=== PATIENT | male | born 1995 | race Caucasian/White ===

== ENCOUNTER 2017-09-08 05:25 | Emergency (ER) | payer SELFPAY ==
[~2017-09-08] VITALS: Ht 175.3 cm; Wt 73.9 kg
[~2017-09-08 05:25] MED LIST: CYCL-331 PO; HYDR-2163 PO; IBUP600T16 PO
--- NOTE | 2017-09-08 05:29 | ED.ADGEN ---
Past History Past Medical History: No Pertinent History, Asthma (FLORENCIA DALLAS MD) Past Surgical History: No Surgical History (FLORENCIA DALLAS MD) Smoking: Non-smoker Alcohol Use: None Drug Use: None (FLORENCIA DALLAS MD) Adult General Chief Complaint Chief Complaint chest pain (JAELYN WEIR DO) Chief Complaint " I woke up with this very bad chest pain on Lt..." (FLORENCIA DALLAS MD) HPI HPI Patient is a 21 year old male who presents with above hx and complaints of CP. Pt. is let pectoral area. No radiation, Some increase in pain with deep breaths and cough. No previous hx of cardia, DVT, trauma, fevers, chills or ill contacts. Pt. denies drug use. No travel. Pt. did get dehydrated today and was drinking "Monster" drinks. (FLORENCIA DALLAS MD) HPI I am taking over this patient from Dr. Dallas. Patient presents with left- sided chest wall pain. He states that it is a cramping pain that started last night. He was doing yard work all day yesterday working with a [employer]. He was drinking monster drinks all day no water or Gatorade in between. During my interview, the patient states pain is improved from when he arrived. His left pectoral muscle is tender with palpation. He denies shortness of breath or diaphoresis. (JAELYN WEIR DO) Review of Systems Review of Systems Constitutional: Denies fever or chills [] Eyes: Denies change in visual acuity, redness, or eye pain [] HENT: Denies nasal congestion or sore throat [] Respiratory: Denies cough or shortness of breath [] Cardiovascular: No additional information not addressed in HPI [] GI: Denies abdominal pain, nausea, vomiting, bloody stools or diarrhea [] : Denies dysuria or hematuria [] Musculoskeletal: Denies back pain or joint pain [] Integument: Denies rash or skin lesions [] Neurologic: Denies headache, focal weakness or sensory changes [] Endocrine: Denies polyuria or polydipsia [] All other systems were reviewed and found to be within normal limits, except as documented in this note. (FLORENCIA DALLAS MD) Family History Family History non-contributory (FLORENCIA DALLAS MD) Current Medications Current Medications Current Medications Medications (Trade) Dose Ordered Sig/Rowena Start Time Stop Time Status Last Admin Dose Admin Aspirin (Children'S Aspirin) 324 mg 1X ONCE 09/08/17 06:00 09/08/17 06:01 DC 09/08/17 06:00 324 MG Ketorolac Tromethamine (Toradol) 30 mg 1X ONCE 09/08/17 06:00 09/08/17 06:01 DC 09/08/17 06:00 30 MG Lactated Ringer's 1,000 ml @ 1,000 mls/hr Q1H 09/08/17 06:00 09/08/17 07:00 DC 09/08/17 06:00 1,000 MLS/HR (JAELYN WEIR DO) Current Medications See Nursing for home meds. (FLORENCIA DALLAS MD) Allergies Allergies Allergies Coded Allergies Type Severity Reaction Last Updated Verified Penicillins Allergy Intermediate 04/29/14 Yes (JAELYN WEIR DO) Physical Exam Physical Exam Constitutional: Well developed, well nourished, mild distress, non-toxic appearance. [] HENT: Normocephalic, atraumatic, bilateral external ears normal, oropharynx moist, no oral exudates, nose normal. [] Eyes: PERRLA, EOMI, conjunctiva normal, no discharge. [] Neck: Normal range of motion, no tenderness, supple, no stridor. [] Cardiovascular:Tachycardia Heart rate regular rhythm, no murmur [] Lungs & Thorax: Bilateral breath sounds equal with few scattered wheezes on auscultation [] Abdomen: Bowel sounds normal, soft, no tenderness, no masses, no pulsatile masses. [] Skin: Warm, dry, no erythema, no rash. [] Tattoos Back: No tenderness, no CVA tenderness. [] Extremities: No tenderness, no cyanosis, no clubbing, ROM intact, no edema. [] No cording appreciated. Neurologic: Alert and oriented X 3, normal motor function, normal sensory function, no focal deficits noted. [] Psychologic: Affect anxious judgement normal, mood normal. [] (FLORENCIA DALLAS MD) Current Patient Data Vital Signs Vital Signs Date Time Temp Pulse Resp B/P (MAP) Pulse Ox O2 Delivery O2 Flow Rate FiO2 09/08/17 05:51 98.4 110 17 98 Room Air ([facility]) Lab Results Laboratory Tests Test 09/08/17 06:13 White Blood Count 10.3 x10^3/uL (4.0-11.0) Red Blood Count 5.14 x10^6/uL (4.30-5.70) Hemoglobin 16.1 g/dL (13.0-17.5) Hematocrit 45.7 % (39.0-53.0) Mean Corpuscular Volume 89 fL (79-100) Mean Corpuscular Hemoglobin 31 pg (25-35) Mean Corpuscular Hemoglobin Concent 35 g/dL (31-37) Red Cell Distribution Width 13.1 % (11.5-14.5) Platelet Count 244 x10^3/uL (140-400) Neutrophils (%) (Auto) 69 % (31-73) Lymphocytes (%) (Auto) 20 % (24-48) L Monocytes (%) (Auto) 9 % (0-9) Eosinophils (%) (Auto) 0 % (0-3) Basophils (%) (Auto) 1 % (0-3) Neutrophils # (Auto) 7.2 x10^3uL (1.8-7.7) Lymphocytes # (Auto) 2.1 x10^3/uL (1.0-4.8) Monocytes # (Auto) 0.9 x10^3/uL (0.0-1.1) Eosinophils # (Auto) 0.0 x10^3/uL (0.0-0.7) Basophils # (Auto) 0.1 x10^3/uL (0.0-0.2) Prothrombin Time 11.7 SEC (9.4-11.4) H Prothrombin Time INR 1.1 (0.9-1.1) PTT 26 SEC (23-33) D-Dimer (Yuko) < 0.19 mg/L (0.00-0.50) Urine Collection Type Unknown Urine Color Straw Urine Clarity Clear Urine pH 6.0 Urine Specific [place] <=1.005 Urine Protein Neg (NEG-TRACE) Urine Glucose (UA) Neg mg/dL (NEG) Urine Ketones (Stick) 40 mg/dL (NEG) Urine Blood Neg (NEG) Urine Nitrite Neg (NEG) Urine Bilirubin Neg (NEG) Urine Urobilinogen Dipstick 0.2 mg/dL (0.2 mg/dL) Urine Leukocyte Esterase Neg (NEG) Urine RBC 0 /HPF (0-2) Urine WBC 0 /HPF (0-4) Urine Squamous Epithelial Cells Occ /LPF Urine Bacteria 0 /HPF (0-FEW) Sodium Level 141 mmol/L (136-145) Potassium Level 3.4 mmol/L (3.5-5.1) L Chloride Level 104 mmol/L (98-107) Carbon Dioxide Level 26 mmol/L (21-32) Anion Gap 11 (6-14) Blood Urea Nitrogen 15 mg/dL (8-26) Creatinine 1.4 mg/dL (0.7-1.3) H Estimated GFR (Cockcroft-Gault) 65.3 Glucose Level 95 mg/dL (70-99) Calcium Level 9.4 mg/dL (8.5-10.1) Magnesium Level 2.3 mg/dL (1.8-2.4) Total Bilirubin 1.7 mg/dL (0.2-1.0) H Direct Bilirubin 0.3 mg/dL (0.0-0.2) H Aspartate Amino Transferase (AST) 16 U/L (15-37) Alanine Aminotransferase (ALT) 20 U/L (16-63) Alkaline Phosphatase 93 U/L (46-116) Creatine Kinase 548 U/L (39-308) H Creatine Kinase MB (Mass) 2.1 ng/mL (0.0-3.6) Creatine Kinase MB Relative Index 0.4 % (0-4) Troponin I Quantitative < 0.017 ng/mL (0-0.055) PD-Zkc-M-Type Natriuretic Peptide 22 pg/mL (0-124) Total Protein 7.5 g/dL (6.4-8.2) Albumin 4.2 g/dL (3.4-5.0) Lipase 92 U/L (73-393) Urine Opiates Screen Neg (NEG) Urine Methadone Screen Neg (NEG) Urine Barbiturates Neg (NEG) Urine Phencyclidine Screen Neg (NEG) Urine Amphetamine/Methamphetamine Pos (NEG) Urine Benzodiazepines Screen Neg (NEG) Urine Cocaine Screen Neg (NEG) Urine Cannabinoids Screen Neg (NEG) Urine Ethyl Alcohol Neg (NEG) (JAELYN WEIR DO) Lab Results Laboratory Tests Test 09/08/17 06:13 White Blood Count 10.3 x10^3/uL (4.0-11.0) Red Blood Count 5.14 x10^6/uL (4.30-5.70) Hemoglobin 16.1 g/dL (13.0-17.5) Hematocrit 45.7 % (39.0-53.0) Mean Corpuscular Volume 89 fL (79-100) Mean Corpuscular Hemoglobin 31 pg (25-35) Mean Corpuscular Hemoglobin Concent 35 g/dL (31-37) Red Cell Distribution Width 13.1 % (11.5-14.5) Platelet Count 244 x10^3/uL (140-400) Neutrophils (%) (Auto) 69 % (31-73) Lymphocytes (%) (Auto) 20 % (24-48) L Monocytes (%) (Auto) 9 % (0-9) Eosinophils (%) (Auto) 0 % (0-3) Basophils (%) (Auto) 1 % (0-3) Neutrophils # (Auto) 7.2 x10^3uL (1.8-7.7) Lymphocytes # (Auto) 2.1 x10^3/uL (1.0-4.8) Monocytes # (Auto) 0.9 x10^3/uL (0.0-1.1) Eosinophils # (Auto) 0.0 x10^3/uL (0.0-0.7) Basophils # (Auto) 0.1 x10^3/uL (0.0-0.2) Prothrombin Time 11.7 SEC (9.4-11.4) H Prothrombin Time INR 1.1 (0.9-1.1) PTT 26 SEC (23-33) D-Dimer (Yuko) < 0.19 mg/L (0.00-0.50) Urine Collection Type Unknown Urine Color Straw Urine Clarity Clear Urine pH 6.0 Urine Specific [place] <=1.005 Urine Protein Neg (NEG-TRACE) Urine Glucose (UA) Neg mg/dL (NEG) Urine Ketones (Stick) 40 mg/dL (NEG) Urine Blood Neg (NEG) Urine Nitrite Neg (NEG) Urine Bilirubin Neg (NEG) Urine Urobilinogen Dipstick 0.2 mg/dL (0.2 mg/dL) Urine Leukocyte Esterase Neg (NEG) Urine RBC 0 /HPF (0-2) Urine WBC 0 /HPF (0-4) Urine Squamous Epithelial Cells Occ /LPF Urine Bacteria 0 /HPF (0-FEW) Sodium Level 141 mmol/L (136-145) Potassium Level 3.4 mmol/L (3.5-5.1) L Chloride Level 104 mmol/L (98-107) Carbon Dioxide Level 26 mmol/L (21-32) Anion Gap 11 (6-14) Blood Urea Nitrogen 15 mg/dL (8-26) Creatinine 1.4 mg/dL (0.7-1.3) H Estimated GFR (Cockcroft-Gault) 65.3 Glucose Level 95 mg/dL (70-99) Calcium Level 9.4 mg/dL (8.5-10.1) Magnesium Level 2.3 mg/dL (1.8-2.4) Total Bilirubin 1.7 mg/dL (0.2-1.0) H Direct Bilirubin 0.3 mg/dL (0.0-0.2) H Aspartate Amino Transferase (AST) 16 U/L (15-37) Alanine Aminotransferase (ALT) 20 U/L (16-63) Alkaline Phosphatase 93 U/L (46-116) Creatine Kinase 548 U/L (39-308) H Creatine Kinase MB (Mass) 2.1 ng/mL (0.0-3.6) Creatine Kinase MB Relative Index 0.4 % (0-4) Troponin I Quantitative < 0.017 ng/mL (0-0.055) JC-Uih-F-Type Natriuretic Peptide 22 pg/mL (0-124) Total Protein 7.5 g/dL (6.4-8.2) Albumin 4.2 g/dL (3.4-5.0) Lipase 92 U/L (73-393) Thyroid Stimulating Hormone (TSH) 2.134 uIU/mL (0.358-3.740) Urine Opiates Screen Neg (NEG) Urine Methadone Screen Neg (NEG) Urine Barbiturates Neg (NEG) Urine Phencyclidine Screen Neg (NEG) Urine Amphetamine/Methamphetamine Pos (NEG) Urine Benzodiazepines Screen Neg (NEG) Urine Cocaine Screen Neg (NEG) Urine Cannabinoids Screen Neg (NEG) Urine Ethyl Alcohol Neg (NEG) (FLORENCIA DALLAS MD) EKG EKG My interpretation EKG shows a sinus tachycardia heart beats per minute. There are no findings acute STEMI of contralateral changes.[] (FLORENCIA DALLAS MD) Radiology/Procedures Radiology/Procedures I interpretation chest x-ray shows no acute cardiopulmonary findings.[] (FLORENCIA DALLAS MD) Radiology/Procedures PA and lateral chest x-ray HISTORY: Left-sided chest pain. FINDINGS: Heart size normal. Mediastinal silhouette is normal. No pneumothorax, pulmonary opacities or pleural effusions. Bones are unremarkable. IMPRESSION: No acute process. Electronically signed by: Chandler Bravo MD (09/08/2017 6:35 AM) [facility] (JAELYN WEIR DO) Course & Med Decision Making Course & Med Decision Making Pertinent Labs and Imaging studies reviewed. (See chart for details). Labs. pending at shift change Dr. Weir will make disposition of pt. Impression push fluids. Patient reduce his intake of caffeine drinks such as "Monster" Pt. to take a daily ASA and Ibuprofen 400 mg with food for pain. Follow up with Primary and Cardiology for out pt. stress testing. Return if any concerns. [] (FLORENCIA DALLAS MD) Course & Med Decision Making I have reexamined the patient and agree with Dr. Mullins's review of systems and physical exam. Patient's EKG is unremarkable except the rate is 100. The patient appears to be clinically dehydrated. We are rehydrating him lactated Ringer's while waiting for the rest of his results. The patient's labs are unremarkable. His troponin is negative. His UDS is positive for methamphetamine or amphetamine. He does not have a prescription for such medication. This could be contributing to his chest discomfort. His pain does not appear to be cardiac in nature. It could be musculoskeletal. He is stable for discharge at this time. (JAELYN WEIR DO) Final Impression Final Impression 1. Chest Pain[]-Chest Wall 2. Hx. of Asthma. (FLORENCIA DALLAS MD) Final Impression Drug abuse, chest wall pain (JAELYN WEIR DO) Dragon Disclaimer Dragon Disclaimer This electronic medical record was generated, in whole or in part, using a voice recognition dictation system. (FLORENCIA DALLAS MD) FLORENCIA DALLAS MD September 08, 2017 05:29 JAELYN WEIR DO September 08, 2017 06:20
[2017-09-08] MEDS ORDERED: KETOROLAC 30 MG/ML VIAL. IV ONE (06:00)
[2017-09-08] MEDS ORDERED: IV RINGERS SOLUTION,LACTATED 1,000 ML IV SCH (06:00)
[2017-09-08] MEDS ORDERED: ASPIRIN 81 MG TAB.CHEW PO ONE (06:00)
--- NOTE | 2017-09-08 06:07 | EKG ---
[address] [address] Test Date: 2017-09-08 Test Time: 05:41:52 Pat Name: EDU DOMIGNO Department: Room: Gender: M [employer]iping Manager: GEETHA : 1995 Requested By: FLORENCIA YING Order Number: [id number] Reading MD: Measurements Intervals [place] Rate: 100 P: 64 CA: 148 QRS: 36 QRSD: 88 T: 59 QT: 340 QTc: 442 Interpretive Statements SINUS RHYTHM NO SPECIFIC ECG ABNORMALITIES RI6.01 No previous ECG available for comparison
[2017-09-08 06:34] LABS: BASO # 0.1 x10^3/uL (0.0-0.2); BASO % 1 % (0-3); EOS % 0 % (0-3); HEMATOCRIT 45.7 % (39.0-53.0); HEMOGLOBIN 16.1 g/dL (13.0-17.5); LYMPH # 2.1 x10^3/uL (1.0-4.8); LYMPH % 20 % (24-48); MEAN CORPUSCULAR HEMOGLOBIN 31 pg (25-35); MEAN CORPUSCULAR HGB CONC 35 g/dL (31-37); MEAN CORPUSCULAR VOLUME 89 fL (79-100); MONO # 0.9 x10^3/uL (0.0-1.1); MONO % 9 % (0-9); NEUT # 7.2 x10^3uL (1.8-7.7); NEUT % 69 % (31-73); PLATELET COUNT 244 x10^3/uL (140-400); RED BLOOD COUNT 5.14 x10^6/uL (4.30-5.70); RED CELL DISTRIBUTION WIDTH 13.1 % (11.5-14.5); WHITE BLOOD COUNT 10.3 x10^3/uL (4.0-11.0)
[2017-09-08 06:35] LABS: BILIRUBIN,URINE NEG (NEG); CLARITY,URINE CLEAR; COLOR,URINE STRAW; GLUCOSE,URINE NEG (NEG); NITRITE,URINE NEG (NEG); RBC,URINE 0 /HPF (0-2); UROBILINOGEN,URINE 0.2 mg/dL (0.2 mg/dL); WBC,URINE 0 /HPF (0-4)
[2017-09-08 06:36] LABS: BACTERIA,URINE 0 /HPF (0-FEW); SQUAMOUS EPITHELIAL CELL,UR OCC /LPF
--- NOTE | 2017-09-08 06:38 | RAD ---
PA and lateral chest x-ray HISTORY: Left-sided chest pain. FINDINGS: Heart size normal. Mediastinal silhouette is normal. No pneumothorax, pulmonary opacities or pleural effusions. Bones are unremarkable. IMPRESSION: No acute process. Electronically signed by: Chandler Bravo MD (09/08/2017 6:35 AM) [facility] [place]
[2017-09-08 06:44] LABS: BARBITURATES NEG (NEG); BENZODIAZEPINES NEG (NEG); CANNABINOIDS NEG (NEG); COCAINE NEG (NEG); METHADONE NEG (NEG); OPIATES NEG (NEG); PHENCYCLIDINE NEG (NEG)
[2017-09-08 06:45] LABS: AMPHETAMINE/METHAMPHETAMINE POS (NEG)
[2017-09-08 06:57] LABS: ALBUMIN 4.2 g/dL (3.4-5.0); CALCIUM 9.4 mg/dL (8.5-10.1); CREATININE 1.4 mg/dL (0.7-1.3); DIRECT BILIRUBIN 0.3 mg/dL (0.0-0.2); GFR 65.3; MAGNESIUM 2.3 mg/dL (1.8-2.4); POTASSIUM 3.4 mmol/L (3.5-5.1); TOTAL BILIRUBIN 1.7 mg/dL (0.2-1.0); TOTAL PROTEIN 7.5 g/dL (6.4-8.2)
[2017-09-08 07:16] VITALS: BP 158/81
== END 2017-09-08 07:18 | disposition home or self-care (01) ==
LOC: ER 05:25
DX: R07.89 Other chest pain (principal); J45.909 Unspecified asthma, uncomplicated; E86.0 Dehydration; Z88.0 Allergy status to penicillin
CPT/HCPCS: 36415; 71046; 80048; 80076; 80307; 81001; 82553; 83690; 83735; 83880; 84443; 84484; 85025; 85379; 85610; 85730; 93005; 96374; 99285; J1885; J7120; G0479

== ENCOUNTER 2019-05-23 11:23 | Emergency (ER) | payer SELFPAY ==
[~2019-05-23] VITALS: Ht 172.7 cm; Wt 82.2 kg
[2019-05-23] MEDS ORDERED: IV NORMAL SALINE 1,000ML 1,000 ML IV SCH (12:05)
--- NOTE | 2019-05-23 12:09 | PHYS DOC ---
Past History Past Medical History: No Pertinent History, Asthma Past Surgical History: No Surgical History Smoking: Non-smoker Alcohol Use: None Drug Use: None Adult General Chief Complaint Chief Complaint: FLANK PAIN HPI HPI Patient is a 23-year-old male who presents with complaint of left upper quadrant/flank pain since early this morning. His pain has lessened slightly but is currently rated 6/10 and is constant and has no exacerbating or alleviating factors. He was sick with viral gastroenteritis the last 48 hours and this ended 2 days ago. The fever chills reported. Denies chest pain or shortness of breath, dysuria or hematuria, history of ureteral stones, history of intra-abdominal problems. Review of Systems Review of Systems All other ROS is negative unless otherwise stated in HPI Allergies Allergies Allergies Coded Allergies Type Severity Reaction Last Updated Verified Penicillins Allergy Intermediate 05/23/19 Yes Physical Exam Physical Exam See above Constitutional: Well developed, well nourished, no acute distress, non-toxic appearance. [] HENT: Normocephalic, atraumatic, bilateral external ears normal, oropharynx moist, no oral exudates, nose normal. [] Eyes: PERRLA, EOMI, conjunctiva normal, no discharge. [] Neck: Normal range of motion, no tenderness, supple, no stridor. [] Cardiovascular:Heart rate regular rhythm, no murmur [] Lungs & Thorax: Bilateral breath sounds clear to auscultation [] Abdomen: Bowel sounds normal, soft, left upper quadrant tenderness to palpation, no masses, no pulsatile masses. [] Skin: Warm, dry, no erythema, no rash. [] Back: No tenderness, no CVA tenderness. [] Extremities: No tenderness, no cyanosis, no clubbing, ROM intact, no edema. [] Neurologic: Alert and oriented X 3, normal motor function, normal sensory function, no focal deficits noted. [] Psychologic: Affect normal, judgement normal, mood normal. [] Current Patient Data Vital Signs Vital Signs Date Time Temp Pulse Resp B/P (MAP) Pulse Ox O2 Delivery O2 Flow Rate FiO2 05/23/19 11:51 97.7 68 16 152/93 (112) 98 Room Air Lab Results Laboratory Tests Test 05/23/19 12:30 White Blood Count 6.7 x10^3/uL Red Blood Count 5.45 x10^6/uL Hemoglobin 16.4 g/dL Hematocrit 49.4 % Mean Corpuscular Volume 91 fL Mean Corpuscular Hemoglobin 30 pg Mean Corpuscular Hemoglobin Concent 33 g/dL Red Cell Distribution Width 13.7 % Platelet Count 199 x10^3/uL Neutrophils (%) (Auto) 65 % Lymphocytes (%) (Auto) 23 % Monocytes (%) (Auto) 8 % Eosinophils (%) (Auto) 3 % Basophils (%) (Auto) 1 % Neutrophils # (Auto) 4.4 x10^3uL Lymphocytes # (Auto) 1.6 x10^3/uL Monocytes # (Auto) 0.5 x10^3/uL Eosinophils # (Auto) 0.2 x10^3/uL Basophils # (Auto) 0.0 x10^3/uL Sodium Level 141 mmol/L Potassium Level 4.1 mmol/L Chloride Level 103 mmol/L Carbon Dioxide Level 33 mmol/L Anion Gap 5 Blood Urea Nitrogen 8 mg/dL Creatinine 1.1 mg/dL Estimated GFR (Cockcroft-Gault) 84.5 BUN/Creatinine Ratio 7 Glucose Level 77 mg/dL Calcium Level 8.9 mg/dL Total Bilirubin 0.3 mg/dL Aspartate Amino Transf (AST/SGOT) 19 U/L Alanine Aminotransferase (ALT/SGPT) 29 U/L Alkaline Phosphatase 72 U/L Total Protein 7.2 g/dL Albumin 3.7 g/dL Albumin/Globulin Ratio 1.1 Lipase 107 U/L Heterophil Agglutinins Negative Current Medications Medications (Trade) Dose Ordered Sig/Rowena Route PRN Reason Start Time Stop Time Status Last Admin Dose Admin Multi-Ingredient Mouthwash/Gargle (Gi Cocktail) 20 ml 1X ONCE PO 05/23/19 12:15 05/23/19 12:16 DC 05/23/19 12:31 Sodium Chloride 1,000 ml @ 1,000 mls/hr Q1H IV 05/23/19 12:05 05/23/19 13:04 DC 05/23/19 12:29 Ondansetron HCl (Zofran) 4 mg 1X ONCE IVP 05/23/19 12:15 05/23/19 12:16 DC 05/23/19 12:31 Morphine Sulfate (Morphine 4mg Syringe) 4 mg 1X ONCE IM 05/23/19 12:15 2/7/20 12:16 DC EKG EKG [] Radiology/Procedures Radiology/Procedures EXAM: Abdomen acute complete. HISTORY: Pain. COMPARISON: None. FINDINGS: A frontal view the chest and frontal upright and supine views of the abdomen are obtained. There is no infiltrate, pleural effusion or pneumothorax. The heart is normal in size. There is gas and stool within the colon. No abnormally dilated loop of bowel seen. There is punctate radiodense material overlying the abdomen which may be within loops of bowel or along the overlying skin. IMPRESSION: Nonspecific bowel gas pattern. No acute pulmonary finding. Electronically signed by: Esme Handley MD (05/23/2019 12:30 PM) [facility] [place] Course & Med Decision Making Course & Med Decision Making Patient seen for left upper quadrant pain. We'll start with labs, IV fluids, abdominal x-ray, mononucleosis screen. Essential diagnosis includes mono, viral gastroenteritis, gastritis and colitis, nonspecific abdominal pain. We will also give him a GI cocktail 1338: Laboratory analysis is unremarkable as well as his x-ray. Patient states that he received moderate relief GI cocktail and recently has been suffering from heartburn. This information and the lack of negative diagnostic testing today I suspect he likely has gastritis and I will start him on an H2 conrado. Patient voices understanding Dragon Disclaimer Dragon Disclaimer This electronic medical record was generated, in whole or in part, using a voice recognition dictation system. Departure Departure: Impression: Primary Impression: Left upper quadrant pain Additional Impression: Gastritis Disposition: HOME, SELF-CARE Condition: STABLE Referrals: PCP,NO (PCP) Patient Instructions: Gastritis, Adult Additional Instructions: Follow-up with your doctor in 1-2 weeks if you continued to have symptoms that are not improving Scripts Famotidine (PEPCID) 20 Mg Tablet 1 TAB PO BID for Gastritis for 14 Days, #28 TAB 0 Refills Prov: YOLIE HENDERSON DO 05/23/19 Problem Qualifiers YOLIE HENDERSON DO May 23, 2019 12:09
[2019-05-23] MEDS ORDERED: LIDO:MAALOX 1:1 20 ML SINGLE DOSE. PO ONE (12:15)
[2019-05-23] MEDS ORDERED: ONDANSETRON PF 4 MG/2 ML VIAL. IVP ONE (12:15)
[2019-05-23] MEDS ORDERED: MORPHINE SULFATE 4 MG/ML DISP.SYRIN. IM ONE (12:15)
--- NOTE | 2019-05-23 12:33 | RAD ---
EXAM: Abdomen acute complete. HISTORY: Pain. COMPARISON: None. FINDINGS: A frontal view the chest and frontal upright and supine views of the abdomen are obtained. There is no infiltrate, pleural effusion or pneumothorax. The heart is normal in size. There is gas and stool within the colon. No abnormally dilated loop of bowel seen. There is punctate radiodense material overlying the abdomen which may be within loops of bowel or along the overlying skin. IMPRESSION: Nonspecific bowel gas pattern. No acute pulmonary finding. Electronically signed by: Esme Handley MD (05/23/2019 12:30 PM) [facility] [place]
[2019-05-23 12:45] LABS: BASO % 1 % (0-3); EOS # 0.2 x10^3/uL (0.0-0.7); EOS % 3 % (0-3); HEMATOCRIT 49.4 % (39.0-53.0); HEMOGLOBIN 16.4 g/dL (13.0-17.5); LYMPH # 1.6 x10^3/uL (1.0-4.8); LYMPH % 23 % (24-48); MEAN CORPUSCULAR HEMOGLOBIN 30 pg (25-35); MEAN CORPUSCULAR HGB CONC 33 g/dL (31-37); MEAN CORPUSCULAR VOLUME 91 fL (79-100); MONO # 0.5 x10^3/uL (0.0-1.1); MONO % 8 % (0-9); NEUT # 4.4 x10^3uL (1.8-7.7); NEUT % 65 % (31-73); PLATELET COUNT 199 x10^3/uL (140-400); RED BLOOD COUNT 5.45 x10^6/uL (4.30-5.70); RED CELL DISTRIBUTION WIDTH 13.7 % (11.5-14.5); WHITE BLOOD COUNT 6.7 x10^3/uL (4.0-11.0)
[2019-05-23 12:54] LABS: CALCIUM 8.9 mg/dL (8.5-10.1); CREATININE 1.1 mg/dL (0.7-1.3); GFR 84.5; POTASSIUM 4.1 mmol/L (3.5-5.1)
[2019-05-23 13:00] LABS: ALBUMIN 3.7 g/dL (3.4-5.0); ALBUMIN/GLOBULIN RATIO 1.1 (1.0-1.7); TOTAL BILIRUBIN 0.3 mg/dL (0.2-1.0); TOTAL PROTEIN 7.2 g/dL (6.4-8.2)
[2019-05-23 13:04] LABS: MONONUCLEOSIS PATIENT NEGATIVE (NEGATIVE)
[2019-05-23] MEDS ORDERED: FAMO-63 PO (13:41)
[2019-05-23 14:15] VITALS: BP 141/79
== END 2019-05-23 14:15 | disposition home or self-care (01) ==
LOC: ER 11:23
DX: K29.70 Gastritis, unspecified, without bleeding (principal); J45.909 Unspecified asthma, uncomplicated; Z88.0 Allergy status to penicillin
CPT/HCPCS: 36415; 74022; 80053; 83690; 85025; 86308; 96374; 99285; J2405; J7030